=== PATIENT | male | born 1995 ===

== ENCOUNTER 2019-04-19 21:57 | Emergency (ER) | payer SELFPAY ==
[~2019-04-19] VITALS: Ht 175.3 cm; Wt 84.7 kg
[2019-04-20] MEDS ORDERED: SODIUM CHLORIDE 0.9% 1,000 ML IV ONE (01:45)
[2019-04-20] MEDS ORDERED: HYDROCODONE/ACETAMINOPHEN 5/325MG TABLET PO SCH (01:45)
[2019-04-20 03:46] VITALS: BP 126/76
== END 2019-04-20 03:46 | disposition home or self-care (01) ==
LOC: ER 21:57
DX: S52.691A Other fracture of lower end of right ulna, initial encounter for closed fracture (principal); W22.8XXA Striking against or struck by other objects, initial encounter; Y92.322 Soccer field as the place of occurrence of the external cause; Y93.66 Activity, soccer; F12.90 Cannabis use, unspecified, uncomplicated
CPT/HCPCS: 29125; 73090; 99283; Z7610